=== PATIENT | female | born 1995 | race Caucasian/White ===

== ENCOUNTER 2022-11-24 12:50 | Outpatient (CLI) | payer OTHER, SELFPAY ==
--- NOTE | 2022-11-24 13:00 | CRLHL7_ITS ---
For Patients: As a result of the Cures Act, medical imaging exams and procedure reports are released immediately into your electronic medical record. You may view this report before your referring provider. If you have questions, please contact your health care provider. INDICATION: First trimester scan, establish dates. COMPARISON: None. TECHNIQUE: Real-time javier-scale imaging of the pelvis was performed. FINDINGS: Sonographic imaging demonstrates a single living intrauterine gestation. The embryo demonstrates a regular cardiac rate measuring 176 beats per minute. The embryo`s crown-rump length measurement of 2.5 cm corresponds to a gestational age of 9 weeks 1 day with a sonographic due date of June 28, 2023. There is a normal-appearing yolk sac measuring up to 3 mm. There are no gross abnormalities noted within the embryo at this early state of development. The placenta has not yet developed. The gestational sac has a normal appearance and there is no evidence of a perigestational hemorrhage. The amount of fluid within the sac appears appropriate for gestational age. The cervix is closed. The myometrium appears normal. The ovaries are of normal size. The right ovary measures 4.2 x 2.2 x 2.7 cm and contains a small corpus luteum cyst of . The left ovary measures 3.3 x 1.2 x 3.1 cm. There are no suspicious fluid collections noted in the cul-de-sac. IMPRESSION: Normal first trimester OB ultrasound exam. Gestational age calculated at 9 weeks 1 day with a sonographic due date of June 28, 2023. Dictated by Magdy Downing MD @ 11/24/2022 3:47:55 PM (Electronically Signed)
== END 2022-11-24 12:51 | disposition home or self-care (01) ==
LOC: US 12:51
PROVIDERS: Visit Provider Registered Nurse
DX: Z34.91 Encounter for supervision of normal pregnancy, unspecified, first trimester (principal); Z3A.09 9 weeks gestation of pregnancy
CPT/HCPCS: 76801; 76817; 76857

== ENCOUNTER 2022-11-24 13:09 | Outpatient (CLI) | payer OTHER, SELFPAY ==
[2022-11-24 18:00] LABS: Chlamydia DNA Amplified* NOT DETECTED (No Detected); GC DNA Amplified* NOT DETECTED (No Detected)
== END 2022-11-24 13:10 | disposition home or self-care (01) ==
PROVIDERS: Visit Provider Advanced Practice Midwife
DX: Z34.91 Encounter for supervision of normal pregnancy, unspecified, first trimester (principal); Z3A.09 9 weeks gestation of pregnancy
CPT/HCPCS: 86592; 86593; 86703; 86762; 86780; 86787; 86803; 86850; 86900; 86901; 87086; 87340; 87491; 87591

== ENCOUNTER 2023-04-06 08:48 | Outpatient (CLI) | payer OTHER, SELFPAY ==
--- OUTSIDE RECORDS SUMMARY | 2023-04-09 06:30 | XMS_ITS | Patient Health Record ---
Author Name Unknown Organization [facility] Address [address] [place], [place] [id number] Care Team Providers Care Drapery And Upholstery Estimator Name Role Phone None, No PCP Primary Care Provider Jonny Hernandez Unavailable [phone] Nhi Marquez Unavailable [phone] ALLERGIES No Known Allergies REASON FOR REFERRAL No Information MEDICATIONS Medication SIG (Take, Route, Fr equency, Duration) Notes Start Date End Date Status PNV Not-Taking SOCIAL HISTORY Tobacco Use: Social History Observation Description Date Details (start date - stop date) Former Smoker NA - NA Sex Assigned At : Social History Observation Description Sex Assigned At Unknown Tobacco Use/Smoking Question Answer Notes Are you a former smoker PROBLEMS Problem Type ICD Code Onset Dates Problem Status W/U Status Risk SNOMED Code Notes Problem Missed menses (N92.6) Active confirmed Missed period (34338132) VITAL SIGNS Blood pressure diastolic 80 mm Hg 05/18/2022 Height 69.5 in 05/18/2022 Blood pressure systolic 122 mm Hg 05/18/2022 Weight 283.0 lbs 05/18/2022 BMI 41.19 kg/m2 05/18/2022 Encounters Encounter Location Date Provider Diagnosis [facility] [address] [place] [address] 05/18/2022 [facility] Encounter for IUD removal Z30.432 ASSESSMENTS Encounter Date Diagnosis Assessment Notes Treatment Notes Treatment Clinical Notes 05/18/2022 Encounter for IUD removal (ICD-10 - Z30.432) Discussion with patient. Patient education done that fertility returns immediately upon removal of IUD. Encouraged patient to start on PNV. Will call the clinic with positive test. PLAN OF TREATMENT No Information Insurance Providers Payer Name Payer Address Payer Phone Subscriber Number Group Number Insured Name Patient Relationship to Insured Coverage Start Date Coverage End Date [facility] [address] [place] [id number] Beatriz Casillas Self - patient is the insured MEDICAL (GENERAL) HISTORY Medical History History ICD Code bladder infections migraines depression\anxiety Surgical History Surgery Date(Month/Year) T&A 2001
== END 2023-04-06 08:49 | disposition home or self-care (01) ==
LOC: NFLDREF 04-09 06:28
PROVIDERS: Visit Provider Obstetrics & Gynecology
DX: Z34.93 Encounter for supervision of normal pregnancy, unspecified, third trimester (principal); Z3A.28 28 weeks gestation of pregnancy
CPT/HCPCS: 86592

== ENCOUNTER 2023-05-04 09:13 | Outpatient (CLI) | payer OTHER, SELFPAY ==
--- NOTE | 2023-05-04 09:15 | CRLHL7_ITS ---
For Patients: As a result of the Century Cures Act, medical imaging exams and procedure reports are released immediately into your electronic medical record. You may view this report before your referring provider. If you have questions, please contact your health care provider. INDICATION: Third trimester scan, evaluate growth. MACROSOMIA COMPARISON: 11/24/2022 TECHNIQUE: Real time javier scale imaging of the fetus was performed. FINDINGS: Sonographic imaging demonstrates a single living intrauterine gestation. Fetus demonstrates a regular cardiac rate of 126 beats per minute. Fetus has a vertex position. The placenta lies anteriorly. Amniotic fluid volume appears normal and there is a single deepest vertical pocket: 6.2 cm. The estimated weight is 2444gm which lies at the greater than 97th %. BPD, HC, AC greater than 97th percentile. FL 47th percentile. The HC/AC ratio measures 1.03 range (0.93-1.11). IMPRESSION: Sonographic gestational age 34 weeks 5 days and sonographic due date 06/10/2023. Sonographic age 19 days ahead of the clinical age. Estimated weight greater than 97th percentile. BPD/HC/AC greater than 97th percentile. Dictated by Bharat Tejada MD @ 05/04/2023 10:18:28 AM (Electronically Signed)
--- OUTSIDE RECORDS SUMMARY | 2023-05-04 09:15 | XMS_ITS | Patient Health Record ---
Author Name Unknown Organization [facility] Address [address] [place], [place] [id number] Care Team Providers Care Senior Paralegal Name Role Phone None, No PCP Primary Care Provider Jonny Hernandez Unavailable [phone] Nhi Marquez Unavailable [phone] ALLERGIES No Known Allergies REASON FOR REFERRAL [...] Missed menses (N92.6) Active confirmed Missed period (51502497) VITAL SIGNS Blood pressure diastolic 80 mm Hg 05/18/2022 Height 69.5 in 05/18/2022 Blood pressure systolic 122 mm Hg 05/18/2022 Weight 283.0 lbs 05/18/2022 BMI 41.19 kg/m2 05/18/2022 Encounters Encounter Location Date Provider Diagnosis [facility] [address] [place] [address] 05/18/2022 [facility] Encounter for IUD removal Z30.432 ASSESSMENTS Encounter [...] Insured Coverage Start Date Coverage End Date [facility] [address] [place], [place] [id number] Beatriz Casillas Self - patient is the insured MEDICAL (GENERAL) HISTORY Medical History History ICD Code bladder infections migraines depression\anxiety Surgical History Surgery Date(Month/Year) T&A 2001
== END 2023-05-04 09:14 | disposition home or self-care (01) ==
LOC: US 09:13
PROVIDERS: Visit Provider Obstetrics & Gynecology
DX: O36.63X0 Maternal care for excessive fetal growth, third trimester, not applicable or unspecified (principal); Z3A.34 34 weeks gestation of pregnancy
CPT/HCPCS: 76816

== ENCOUNTER 2023-05-17 08:37 | Outpatient (CLI) | payer OTHER, SELFPAY ==
--- NOTE | 2023-05-17 08:45 | CRLHL7_ITS ---
For Patients: As a result of the Century Cures Act, medical imaging exams and procedure reports are released immediately into your electronic medical record. You may view this report before your referring provider. If you have questions, please contact your health care provider. INDICATION: hx. macrosomia COMPARISON: 05/04/2023 TECHNIQUE: Real time javier scale imaging of the fetus was performed. Without non-stress testing. FINDINGS: Sonographic imaging demonstrates a single living intrauterine gestation. Fetus demonstrates a regular cardiac rate of 128 beats per minute. Fetus has a vertex position. The amniotic fluid volume appears normal and there is a single deepest pocket measurement of 6.0 cm. The fetus was active and demonstrated normal breathing movements. There was normal flexion and extension of the trunk and extremities. IMPRESSION: Normal biophysical profile score of 8 out of 8. Dictated by Bharat Tejada MD @ 05/17/2023 2:00:04 PM (Electronically Signed)
== END 2023-05-17 08:38 | disposition home or self-care (01) ==
LOC: US 08:37
PROVIDERS: Visit Provider Obstetrics & Gynecology
DX: O36.60X0 Maternal care for excessive fetal growth, unspecified trimester, not applicable or unspecified (principal)
CPT/HCPCS: 76819

== ENCOUNTER 2023-05-26 09:15 | Outpatient (CLI) | payer OTHER, SELFPAY ==
--- NOTE | 2023-05-26 09:15 | CRLHL7_ITS ---
For Patients: As a result of the Century Cures Act, medical imaging exams and procedure reports are released immediately into your electronic medical record. You may view this report before your referring provider. If you have questions, please contact your health care provider. OB US/BIOPHYSICAL PROFILE, 05/26/2023 CLINICAL HISTORY: History of macrosomia. KAYLA by LMP: 06/29/2023. GA: 35 w, 1 d. COMPARISON: 05/17/2023. positioning: Vertex. Amniotic Fluid: 9.0 cm SDP (greater than or equal than 2-less than 8 cm). LUCAS: 16.2 cm. Cervix: Not visualized. TECHNIQUE: Transabdominal. Placenta: Anterior. DOPPLER: Heart Rate: 136 bpm. Biophysical profile: Total score: 8. Gross body movements: 2. tone: 2. Respiratory activity: 2. Amniotic fluid: 2. (SDP N: Increase 2 x 1 cm) IMPRESSION: Biophysical profile 03/09. aKrla Faulkner M.D. Diagnostic/Breast Radiologist [email or web address] Transcribed: 11:10 a.mDemetria JR/Dictated by: Karla Faulkner MD @ 05/28/2023 7:45:00 AM (Electronically Signed)
--- OUTSIDE RECORDS SUMMARY | 2023-05-26 09:16 | XMS_ITS | Patient Health Record ---
Author Name Unknown Organization [facility] Address [address] [place], [place] [address] Care Team Providers Care Larriman Name Role Phone None, No PCP Primary Care Provider Jonny Hernandez [phone] ALLERGIES No Known Allergies REASON FOR REFERRAL [...] Missed menses (N92.6) Active confirmed Missed period (31330064) PLAN OF TREATMENT No Information Insurance Providers Payer Name Payer Address Payer Phone Subscriber Number Group Number Insured Name Patient Relationship to Insured Coverage Start Date Coverage End Date [facility] [address] [facility] OM[facility] [id number] Beatriz Casillas Self - patient is the insured MEDICAL (GENERAL) HISTORY Medical History History ICD Code bladder infections migraines depression\anxiety Surgical History Surgery Date(Month/Year) T&A 2001
== END 2023-05-26 09:16 | disposition home or self-care (01) ==
LOC: US 09:15
PROVIDERS: Visit Provider Obstetrics & Gynecology
DX: O36.60X0 Maternal care for excessive fetal growth, unspecified trimester, not applicable or unspecified (principal)
CPT/HCPCS: 76819

== ENCOUNTER 2023-06-01 09:13 | Outpatient (CLI) | payer OTHER, SELFPAY ==
--- NOTE | 2023-06-01 09:15 | CRLHL7_ITS ---
For Patients: As a result of the Century Cures Act, medical imaging exams and procedure reports are released immediately into your electronic medical record. You may view this report before your referring provider. If you have questions, please contact your health care provider. INDICATION: HX MACROSOMIA TECHNIQUE: Real time javier scale imaging of the fetus was performed. COMPARISON: 05/26/2023 FINDINGS: Sonographic imaging demonstrates a single living intrauterine gestation. Fetus demonstrates a regular cardiac rate of 128 beats per minute. Fetus has a vertex position. The placenta lies anteriorly. Amniotic fluid volume appears upper limits of normal and there is a single deepest pocket of 8.8 cm. LUCAS 24.6 cm. The estimated weight is 3602gm which lies at the greater than 97th %. On the prior OB ultrasound dated 05/04/2023 the estimated weight was at the greater than 97th percentile. BPD, HC, AC greater than 97th percentile. FL 49th percentile. The fetus was active and demonstrated normal breathing movements. There was normal flexion and extension of the trunk and extremities. IMPRESSION: Normal biophysical profile score 8/8. Sonographic gestational age 39 weeks 0 days and sonographic due date 06/08/2023. Sonographic age is 3 weeks ahead of the clinical age. Estimated weight greater than 97th percentile. BPD/HC/AC greater than 97th percentile. Upper limits of normal LUCAS measuring 24.6 cm. Dictated by Bharat Tejada MD @ 06/01/2023 11:05:46 AM (Electronically Signed)
--- OUTSIDE RECORDS SUMMARY | 2023-06-01 09:15 | XMS_ITS | Patient Health Record ---
Author Name Unknown Organization [facility] Address [address] [place], [place] [id number] Care Team Providers Care Hob Machine Operator Name Role Phone None, No PCP Primary Care Provider Jonny Hernandez [phone] ALLERGIES No Known Allergies REASON FOR REFERRAL [...] Missed menses (N92.6) Active confirmed Missed period ([id number]) PLAN OF TREATMENT No Information Insurance Providers Payer Name Payer Address Payer Phone Subscriber Number Group Number Insured Name Patient Relationship to Insured Coverage Start Date Coverage End Date [facility] [address] [facility] [place] [id number] Beatriz Casillas Self - patient is the insured MEDICAL (GENERAL) HISTORY Medical History History ICD Code bladder infections migraines depression\anxiety Surgical History Surgery Date(Month/Year) T&A 2001
== END 2023-06-01 09:14 | disposition home or self-care (01) ==
LOC: US 09:13
PROVIDERS: Visit Provider Obstetrics & Gynecology
DX: O36.63X0 Maternal care for excessive fetal growth, third trimester, not applicable or unspecified (principal); Z3A.39 39 weeks gestation of pregnancy
CPT/HCPCS: 76816; 76819; 87081; 87653

== ENCOUNTER 2023-06-10 08:42 | Outpatient (CLI) | payer OTHER, SELFPAY ==
--- OUTSIDE RECORDS SUMMARY | 2023-06-10 08:43 | XMS_ITS | Patient Health Record ---
Author Name Unknown Organization [facility] Address [address] [place], [place] [phone] Care Team Providers Care Seam Checker Name Role Phone None, No PCP Primary Care Provider Jonny Hernandez [phone] ALLERGIES No Known Allergies REASON FOR REFERRAL [...] Missed menses (N92.6) Active confirmed Missed period ([id number]) PLAN OF TREATMENT No Information Insurance Providers Payer Name Payer Address Payer Phone Subscriber Number Group Number Insured Name Patient Relationship to Insured Coverage Start Date Coverage End Date [facility] [address] [facility] [place] [id number] Beatriz Casillas Self - patient is the insured MEDICAL (GENERAL) HISTORY Medical History History ICD Code bladder infections migraines depression\anxiety Surgical History Surgery Date(Month/Year) T&A 2001
--- NOTE | 2023-06-10 08:45 | CRLHL7_ITS ---
For Patients: As a result of the Century Cures Act, medical imaging exams and procedure reports are released immediately into your electronic medical record. You may view this report before your referring provider. If you have questions, please contact your health care provider. INDICATION: Macrosomia COMPARISON: 06/01/2023 TECHNIQUE: Real time javier scale imaging of the fetus was performed. Without non-stress testing. FINDINGS: Sonographic imaging demonstrates a single living intrauterine gestation. Fetus demonstrates a regular cardiac rate of 159 beats per minute. Fetus has a vertex position. The amniotic fluid volume appears normal and there is a single deepest pocket measurement of 7.6 cm. The fetus was active and demonstrated normal breathing movements. There was normal flexion and extension of the trunk and extremities. IMPRESSION: Normal biophysical profile score of 8 out of 8. Dictated by Bharat Tejada MD @ 06/10/2023 10:13:31 AM (Electronically Signed)
== END 2023-06-10 08:43 | disposition home or self-care (01) ==
LOC: US 08:42
PROVIDERS: Visit Provider Obstetrics & Gynecology
DX: O36.60X0 Maternal care for excessive fetal growth, unspecified trimester, not applicable or unspecified (principal)
CPT/HCPCS: 76819

== ENCOUNTER 2023-06-15 09:45 | Outpatient (CLI) | payer OTHER, SELFPAY ==
--- NOTE | 2023-06-15 09:45 | CRLHL7_ITS ---
For Patients: As a result of the Century Cures Act, medical imaging exams and procedure reports are released immediately into your electronic medical record. You may view this report before your referring provider. If you have questions, please contact your health care provider. INDICATION: MACROSOMIA COMPARISON: 06/10/2023 TECHNIQUE: Real time javier scale imaging of the fetus was performed. Without non-stress testing. FINDINGS: Sonographic imaging demonstrates a single living intrauterine gestation. Fetus demonstrates a regular cardiac rate of 138 beats per minute. Fetus has a vertex position. The amniotic fluid volume appears normal and there is a single deepest pocket measurement of 7.1 cm. The fetus was active and demonstrated normal breathing movements. There was normal flexion and extension of the trunk and extremities. IMPRESSION: Normal biophysical profile score of 8 out of 8. Dictated by Bharat Tejada MD @ 06/15/2023 10:41:39 AM (Electronically Signed)
--- OUTSIDE RECORDS SUMMARY | 2023-06-15 09:48 | XMS_ITS | Patient Health Record ---
Author Name Unknown Organization [facility] Address [address] [place], [place] [address] Care Team Providers Care It Solutions Sales Consultant Name Role Phone None, No PCP Primary Care Provider Jonny Hernandez [phone] ALLERGIES No Known Allergies REASON FOR REFERRAL [...] Missed menses (N92.6) Active confirmed Missed period ([id number]) PLAN OF TREATMENT No Information Insurance Providers Payer Name Payer Address Payer Phone Subscriber Number Group Number Insured Name Patient Relationship to Insured Coverage Start Date [facility]age End Date [facility] [address] [facility] [place] [id number] Beatriz Casillas Self - patient is the insured MEDICAL (GENERAL) HISTORY Medical History History ICD Code bladder infections migraines depression\anxiety Surgical History Surgery Date(Month/Year) T&A 2001
== END 2023-06-15 09:46 | disposition home or self-care (01) ==
PROVIDERS: Visit Provider Obstetrics & Gynecology
DX: O36.60X0 Maternal care for excessive fetal growth, unspecified trimester, not applicable or unspecified (principal)
CPT/HCPCS: 76819

== ENCOUNTER 2023-06-21 17:02 | Inpatient (IN) | payer OTHER, SELFPAY ==
--- OUTSIDE RECORDS SUMMARY | 2023-06-21 17:07 | XMS_ITS | Patient Health Record ---
Author Name Unknown Organization [facility] Address [address] [place], [place] [address] Care Team Providers Care Manager It Training Name Role Phone None, No PCP Primary Care Provider Jonny Hernandez [phone] ALLERGIES No Known Allergies REASON FOR REFERRAL [...] Missed menses (N92.6) Active confirmed Missed period ([id number]) PLAN OF TREATMENT No Information Insurance Providers Payer Name Payer Address Payer Phone Subscriber Number Group Number Insured Name Patient Relationship to Insured Coverage Start Date Coverage End Date [facility] [address] [facility] [place] [id number] Beatriz Casillas Self - patient is the insured MEDICAL (GENERAL) HISTORY Medical History History ICD Code bladder infections migraines depression\anxiety Surgical History Surgery Date(Month/Year) T&A 2001
[2023-06-21 17:30] VITALS: PULSE 79; O2SAT 97; BMI 41.4
[2023-06-21 17:33] VITALS: BP 118/68; PULSE 77; RESP 18; TEMP 36.6
[2023-06-21 17:35] VITALS: PULSE 83; O2SAT 97
[2023-06-21 18:18] LABS: Basophils Absolute Auto 0.01 K/uL (0.00-0.30); Basophils Percent Auto 0.1 % (0.0-3.0); Eosinophils Absolute Auto 0.08 K/uL (0.00-0.50); Eosinophils Percent Auto 0.9 % (0.0-7.0); Hematocrit 34.2 % (33.0-51.0); Hemoglobin* 11.5 gm/dL (12.0-16.0); Immature Granulocytes Abs Auto 0.04 K/uL (0.00-0.30); Immature Granulocytes Pct Auto 0.5 %; Lymphocytes Percent Auto 19.4 % (20-44); Mean Corpuscular HGB Conc 34 gm/dL (32-36); Mean Corpuscular Hemoglobin 30 pg (26-34); Mean Corpuscular Volume 89 fL (80-100); Monocytes Percent Auto 6.4 % (0.0-11.0); Neutrophils Percent Auto 72.7 % (42.0-72.0); Platelet Count* 230 K/uL (140-440); RDW Coefficient of Variation % 12.9 % (11.5-15.5); Red Blood Count 3.85 m/uL (4.00-5.20)
[2023-06-21 18:19] LABS: Slide Review Reflex No
[2023-06-21 20:03] VITALS: BP 126/70; PULSE 80
--- NOTE | 2023-06-21 20:09 | P.OBHP_ITS ---
OB - H&P: HPI Labor/Induction History of Present Illness Time Seen by Provider: 18:15 Date Seen: 06/21/23 Chief Complaint: Ms. Casillas is a 27yo at 38w6d GA admitted for IOL due to suspected macrosomia. course is complicated by suspected macrosomia (EFW 3602g at >97%ile on 06/01), transient mild polyhydramnios (resolved at last BPP), history of PPH secondary to retained placenta and obesity. Patient is feeling well today, no acute concerns. She has had regular cramping over the last week, notes increased frequency over the last few days with associated tightening. No vaginal bleeding and leaking of fluids. Endorses active movement. Chief complaint: Maternity Specific Issues/Plans Spouse: Shine. Daughter: Karen. Baby: Boy Amrit/Daniel LEZAMA Planning 39 week IOL for suspected macrosomia/polyhydramnios - consent form signed on 05/26/23, tentative date 06/21 (cervical ripening) and 06/22 (IOL) H&P completed by NDP on 06/10/2023 1. BMI 41. -anesthesia referral: -Level II u/s: anterior placenta, no previa, 3v cord. cardiac anatomy not adequately seen; anatomy otherwise normal in appearance. Pt will return to [facility] in 3-4 weeks to complete anatomic survey. D/t BMI: Recommend assess growth at 28 and 34 weeks and begin weekly testing at 34 weeks. 02/16/23: US: growth and EFW nl. Cardiac anatomy not adequately seen. anatomy normal. RVOT seen well / color flow and appears normal. Will reassess anatomy at [facility] in 4 weeks. 03/09/23 US: no anomalies. accelerated growth: Rec. serial growth US q4-6 weeks and weekly BPPs at 34 weeks. -20 wk GCT:100, normal. Repeat at 28 weeks -BPP or NST starting 32 wks: Scheduled (due to polyhydramnios) -Growth u/s between 32-36 wks: EFW 2444 g, or 5 lb 6 oz (>97%), BPD >97%, HC >97%, AC >97%, FL 47%, SDP 6.2 cm, vertex on 05/03/23. 2. Suspected macrosomia: -06/01/23 US: growth 3602g at >97%ile consistent with macrosomia, SDP 8.8cm with LUCAS 24.6cm consistent with mild polyhydramnios. 03/09 BPP. 3. Mild Polyhydramnios, SDP 8.8cm on 06/01 4. Hx of depression & anxiety -Briefly treated with therapist and lexapro in college -stable at NOB 5. Hx of macrosomic baby, 9 lb 4 oz at 40 weeks, denies any complications w/ delivery 6. hx of PP hemorrhage requiring D & C - likely r/t retained placenta 7. 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 Confirmation testing negative for syphilis. Pap due PP Covid vaccination: received, 1 booster Flu vaccination: patient reports this was completed RSV: 06/01/23 TDAP: 04/20/23 History of Present Dating criteria: based on LMP (LMP consistent with 9 week US) care: good care Ultrasounds: normal mid trimester US complications comment: Suspected macrosomia, mild polyhydramnios (resolved on last BPP) Meds Home Medications and Allergies Home Medications Medication Instructions Recorded Confirmed Type prenat.vits,melvin,nmu-aehw-qyybg 1 tab PO QDAY 11/24/22 06/21/23 History Allergies Allergy/AdvReac Type Severity Reaction Status Date / Time No Known Drug Allergies Allergy Verified 06/21/23 17:10 OB - H&P: Exam Physical Exam: Vital signs: Temp Pulse Resp BP Pulse Ox 98 F 80 18 126/70 97 06/21/23 17:33 06/21/23 20:03 06/21/23 17:33 06/21/23 20:03 06/21/23 17:35 Narrative: General: Alert and oriented, in no acute distress Heart: Regular rate and rhythm. Without rubs, murmurs or gallops. Lungs: Clear to posterior auscultation throughout. No wheezes, rales or crackles. Abdomen: Gravid. Nontender, no rebound or guarding. EFW 4100g by Rafita's. Heart Tones: Category 1. Baseline 120bpm, moderate variability, accelerations present, no decelerations. Presentation: Cephalic by digital exam. SVE: 1/50/-3, posterior and moderate consistency. Extremities: No pedal edema. OB - Results Labs Labs: Short CBC 06/21/23 Range/Units 18:13 WBC 8.80 (4.50-11.00) K/uL Hgb 11.5 L (12.0-16.0) gm/dL Hct 34.2 (33.0-51.0) % Plt Count 230 (140-440) K/uL OB - Problem Based A/P Additional Plan (1) : Status: Acute (2) macrosomia affecting management of mother, antepartum: Status: Acute (3) Obesity complicating : Status: Acute (4) Polyhydramnios: Status: Acute (5) History of hemorrhage: Status: Acute Plan Ms. Casillas is a 27yo at 38w6d GA admitted for IOL due to suspected macrosomia. course is complicated by suspected macrosomia (EFW 3602g at >97%ile on 06/01), transient mild polyhydramnios (resolved at last BPP), history of PPH secondary to retained placenta and obesity. Admit to labor and delivery for IOL. Given regular, mild contractions and cervical exam, plan to start IOL at cook catheter. Of note on her last BPP her maximum vertal pocket was within normal limits, but she did previously had mild polyhydramnios. Discussed risks/benefits and alternatives prior to placement, where verbal consent was obtained. Cook insertion was unremarkable. - s/p cook catheter, plan to initiate low dose pitocin augmentation at 0000 pending FHR and toco data - History of PPH secondary to retained placenta, active T/S on file - EFW by my Rafita's exam was 4100g, last growth US on 06/01 with EFW of 3602g at >97%ile. She is s/p counseling regarding risks of macrosomia were reviewed at visits. No questions today. - BT AB+ - GBS negative
[2023-06-21 23:59] VITALS: BP 99/58; PULSE 90
[2023-06-22] VITALS (85 sets, daily range): BP systolic 96–135; BP diastolic 51–84; PULSE 66–146; RESP 16–20; TEMP 36.4–36.8
[2023-06-22] MEDS: LACTATED RINGERS 1000 ML 1,000 ML 125 ML IV ×2 (00:01→07:39)
[2023-06-22] MEDS: OXYTOCIN 30 unit/500 ML in NS 30 UNIT/500 ML BAG IVPB (00:02)
--- NOTE | 2023-06-22 07:40 | P.OBPN_ITS ---
Subjective Time Seen by Provider: 07:40 Date Seen: 06/22/23 Narrative: Patient is comfortable this morning. Rates contractions as mild to moderate, has to stop talking and breathe through some of them. Ordering breakfast. Plans epidural when contractions intensify. Objective Exam: Alert, cooperative, no acute distress. Vital Signs: Last Vital Signs Temp 98 F 06/22/23 00:06 Pulse 90 06/22/23 07:26 Resp 16 06/22/23 00:06 BP 108/61 06/22/23 07:26 Pulse Ox 97 06/21/23 17:35 Pelvic Exam Dilation (cm): 5.5 Effacement (%): 50 Station: ballotable Comments: per nursing at ~5:30 am Contractions Monitor mode: External Contraction Frequency: 2-4 minutes Contraction pattern: Irregular Pitocin Rate (mU/min): 8 Assessment Assessment: induction ongoing Status: Category l Heart Rate Baseline: 135 White Mixing Operator Variability: Moderate (6-25) Monitor Accelerations: Present Monitor Decelerations: None Plan Plan: Continue present management.
--- NOTE | 2023-06-22 11:49 | PM.OBPNL ---
Subjective Time Seen by Provider: 11:49 Date Seen: 06/22/23 Narrative: Patient still working through contractions. Objective Exam: Alert, cooperative, comfortable between contractions Vital Signs: Last Vital Signs Temp 97.7 F 06/22/23 09:55 Pulse 66 06/22/23 10:57 Resp 18 06/22/23 10:57 BP 114/67 06/22/23 10:57 Pulse Ox 97 06/21/23 17:35 Pelvic Exam Dilation (cm): 7 Effacement (%): 80 Station: -1 Contractions Monitor mode: External Contraction pattern: Regular Contraction intensity: Moderate Pitocin Rate (mU/min): 12 Assessment Assessment: induction ongoing Station: -1 Status: Category l Heart Rate Baseline: 140 Monitor Accelerations: Present Monitor Decelerations: None Plan Plan: Continue current management. Epidural prn. Will wait until epidural on board before considering amniotomy.
[2023-06-22] MEDS: LIDOCAINE 2% (PF) 5 ML VIAL EPIDURAL (12:29)
[2023-06-22] MEDS: LACTATED RINGERS 1000 ML 1,000 ML 1125 ML IV (12:35)
[2023-06-22] MEDS: ROPIVACAINE 0.2% 100 ml 100 ML 12 MG EPIDURAL (12:48)
--- NOTE | 2023-06-22 12:57 | PM.ANBPRC ---
[facility] Medical History (Updated 06/21/23 @ 20:14 by Beatriz Vaughn MD) Hx of hemorrhage, currently ?O09.299 - Supervision of with other poor reproductive or obstetric history, unspecified trimester (ICD-10) History of delivery of macrosomal ?Z87.59 - Personal history of other complications of , childbirth and the puerperium (ICD-10) Surgical History (Updated 11/24/22 @ 14:37 by Lisbeth Peck CNM) History of dilatation and curettage ?Z98.890 - Other specified postprocedural states (ICD-10) [place] teeth extracted ?K08.409 - Partial loss of teeth, unspecified cause, unspecified class (ICD-10) Hx of tonsillectomy ?Z90.89 - Acquired absence of other organs (ICD-10) Family History (Updated 11/24/22 @ 14:40 by Lisbeth Peck CNM) Maternal Grandmother Breast cancer Aunt Breast cancer Father Colon polyp Social History What is your current living situation?: I presently have a place to live Problems where you live: no known problems In the past 12 months, utilities in danger of being shut off: no In past 12 months, lack of transportation kept you from medical appts, meetings, work, or getting things needed for daily living: no In the past 12 mos, have been you worried that your food would run out before you had money to buy more?: never true In the past 12 mos, the food you bought just didn't last and you didn't have money to buy more?: never true Smoking Status: Never smoker How often does anyone, including family, friends and others, physically hurt you: never How often does anyone, including family, friends and others, insult or talk down to you: never How often does anyone, including family, friends and others, threaten you with harm: never How often does anyone, including family, friends and others, scream or curse at you: never Little interest or pleasure in doing things: not at all Feeling down, depressed, or hopeless: several days Meds Home Medications and Allergies Home Medications Medication Instructions Recorded Confirmed Type prenat.vits,melvin,plg-phpp-sdhfv 1 tab PO QDAY 11/24/22 06/21/23 History Allergies Allergy/AdvReac Type Severity Reaction Status Date / Time No Known Drug Allergies Allergy Verified 06/21/23 17:10 Results Labs Labs: Laboratory Results - last 24 hr 06/21/23 18:13 WBC 8.80 RBC 3.85 L Hgb 11.5 L Hct 34.2 MCV 89 MCH 30 MCHC 34 RDW Coeff of Matthew 12.9 Plt Count 230 Neut % (Auto) 72.7 H Lymph % (Auto) 19.4 L [place] % (Auto) 6.4 Eos % (Auto) 0.9 Baso % (Auto) 0.1 Neut # (Auto) 6.40 Lymph # (Auto) 1.70 [place] # (Auto) 0.60 Eos # (Auto) 0.08 Baso # (Auto) 0.01 Abs Immat Gran (auto) 0.04 Imm/Tot Granulo (auto) 0.5 Blood Type AB Positive Antibody Screen NEGATIVE Vital Signs Vital Signs: Last Vital Signs Temp 97.6 F 06/22/23 11:50 Pulse 75 06/22/23 12:55 Resp 20 06/22/23 11:50 BP 114/65 06/22/23 12:55 Pulse Ox 97 06/21/23 17:35 Weight: 130.952 kg Height: 177.8 cm Anesthesia Procedures Epidural Insertion Patient Location: OB Start Time: 12:15 Stop Time: 12:45 Start Date: 06/22/23 Stop Date: 06/22/23 Reason for Block: procedure for pain Patient Position: sitting Performed By: Jonny Rae Preanesthetic Checklist: IV checked, risks and benefits discussed, monitors and equipment checked, pre-op evaluation, timeout performed and anesthesia consent Prep: chlorhexidine gluconate Monitoring: blood pressure monitoring, continuous pulse oximetry and heart rate Approach: midline Vertebral Space: lumbar (1-5) Epidural Technique: KORIN saline Needle Type: Tuohy needle Injection Technique: continuous catheter Needle gauge: 17 Needle Length (cm): 10 cm Needle Insertion Depth (cm): 8 Catheter Gauge: 19 Catheter Type: multi-orifice Catheter at skin depth (cm): 14 Test Dose Result: negative and lidocaine 1.5% with epinephrine 1 to 200,000
[2023-06-22] MEDS: PHENYLEPHRINE 100 MCG/ML SYRINGE IVP ×5 (14:02→15:47)
--- NOTE | 2023-06-22 14:09 | PM.ANBPRC ---
[facility] Medical History (Updated 06/21/23 @ 20:14 by Beatriz Vaughn MD) Hx of hemorrhage, currently ?O09.299 - Supervision of with other poor reproductive or obstetric history, unspecified trimester (ICD-10) History of delivery of macrosomal ?Z87.59 - Personal history of other complications of , childbirth and the puerperium (ICD-10) Surgical History (Updated 11/24/22 @ 14:37 by Lisbeth Peck CNM) History of dilatation and curettage ?Z98.890 - Other specified postprocedural states (ICD-10) [place] teeth extracted ?K08.409 - Partial loss of teeth, unspecified cause, unspecified class (ICD-10) Hx of tonsillectomy ?Z90.89 - Acquired absence of other organs (ICD-10) Family History (Updated 11/24/22 @ 14:40 by Lisbeth Peck CNM) Maternal Grandmother Breast cancer Aunt Breast cancer Father Colon polyp Social History What is your current living situation?: I presently have a place to live Problems where you live: no known problems In the past 12 months, utilities in danger of being shut off: no In past 12 months, lack of transportation kept you from medical appts, meetings, work, or getting things needed for daily living: no In the past 12 mos, have been you worried that your food would run out before you had money to buy more?: never true In the past 12 mos, the food you bought just didn't last and you didn't have money to buy more?: never true Smoking Status: Never smoker How often does anyone, including family, friends and others, physically hurt you: never How often does anyone, including family, friends and others, insult or talk down to you: never How often does anyone, including family, friends and others, threaten you with harm: never How often does anyone, including family, friends and others, scream or curse at you: never Little interest or pleasure in doing things: not at all Feeling down, depressed, or hopeless: several days Meds Home Medications and Allergies Home Medications Medication Instructions Recorded Confirmed Type prenat.vits,melvin,cof-lpor-gynwk 1 tab PO QDAY 11/24/22 06/21/23 History Allergies Allergy/AdvReac Type Severity Reaction Status Date / Time No Known Drug Allergies Allergy Verified 06/21/23 17:10 Results Labs Labs: Laboratory Results - last 24 hr 06/21/23 18:13 WBC 8.80 RBC 3.85 L Hgb 11.5 L Hct 34.2 MCV 89 MCH 30 MCHC 34 RDW Coeff of Matthew 12.9 Plt Count 230 Neut % (Auto) 72.7 H Lymph % (Auto) 19.4 L [place] % (Auto) 6.4 Eos % (Auto) 0.9 Baso % (Auto) 0.1 Neut # (Auto) 6.40 Lymph # (Auto) 1.70 [place] # (Auto) 0.60 Eos # (Auto) 0.08 Baso # (Auto) 0.01 Abs Immat Gran (auto) 0.04 Imm/Tot Granulo (auto) 0.5 Blood Type AB Positive Antibody Screen NEGATIVE Vital Signs Vital Signs: Last Vital Signs Temp 97.6 F 06/22/23 11:50 Pulse 90 06/22/23 14:08 Resp 20 06/22/23 11:50 BP 110/77 06/22/23 14:08 Pulse Ox 97 06/21/23 17:35 Weight: 130.952 kg Height: 177.8 cm Anesthesia Procedures Epidural Insertion Patient Location: OB Start Time: 13:30 Stop Time: 14:30 Start Date: 06/22/23 Stop Date: 06/22/23 Reason for Block: primary anesthetic Patient Position: sitting Performed By: Hadley Green Preanesthetic Checklist: IV checked, risks and benefits discussed, surgical consent, monitors and equipment checked, pre-op evaluation, timeout performed and anesthesia consent Prep: chlorhexidine gluconate Monitoring: blood pressure monitoring, cardiac rehabilitation specialist, continuous pulse oximetry and heart rate Approach: midline Vertebral Space: lumbar (1-5) Needle Type: Tuohy needle Injection Technique: continuous catheter Needle gauge: 17 Needle Length (cm): 10 cm Needle Insertion Depth (cm): 6 Catheter Gauge: 19 Catheter Type: multi-orifice Catheter at skin depth (cm): 12 Test Dose Result: negative and lidocaine 1.5% with epinephrine 1 to 200,000 Events: other
[2023-06-22] MEDS: fentaNYL 100 MCG/2 ML inj EPIDURAL (14:23)
--- NOTE | 2023-06-22 15:02 | PM.OBPNL ---
Subjective Time Seen by Provider: 14:50 Date Seen: 06/22/23 Narrative: Patient comfortable with epidural. It had to be administered twice, as the 1st epidural was not effective. A Andrade catheter was placed by the RN at 1410, and a repeat cervical exam at that time demonstrated a ballotable fetus with a bulging bag of devries. Objective Vital Signs: Last Vital Signs Temp 97.9 F 06/22/23 14:00 Pulse 86 06/22/23 14:48 Resp 20 06/22/23 11:50 BP 116/73 06/22/23 14:48 Pulse Ox 97 06/21/23 17:35 Pelvic Exam Dilation (cm): 8 Effacement (%): 90 Station: -1 Contractions Monitor mode: External Contraction pattern: Regular Contraction intensity: Moderate Pitocin Rate (mU/min): 13 Assessment Station: -1 Amniotic Membrane Status: AROM (Amniotomy performed at 1451, clear fluid noted) Status: Category l Heart Rate Baseline: 140 Monitor Accelerations: Present Monitor Decelerations: None Plan Plan: Continue current management. Anticipate vaginal delivery.
--- NOTE | 2023-06-22 17:27 | W.PM.OBVAGDE ---
OB Procedure Vag Delivery Mother Details Mother Details: The patient is a 27 year-old, 2, Para 1001, admitted on 06/21/23 at 38 6/7 weeks gestation for cervical ripening in preparation for induction of labor secondary to suspected marosomia. : 2 Para: 1 Weeks Gestation: 39 Admission Date: 06/21/23 Additional Details Amniotic Membrane Status: intact Amniotic Membrane Rupture Date: 06/22/23 Amniotic Membrane Rupture Time: 14:50 Amniotic Membrane Fluid Description: Clear Analgesia/Anesthesia Type: Epidural Waterbirth: No Pitcoin: Yes Intrapartal Events: Labor Induction Induction Method: Intracervical balloon catheter and per pitocin protocol Delivery augmentation: rupture of membranes Labor Onset: 12:10 Complete: 15:49 Pushin:10 (Patient had nausea/emesis while pushing in lateral recombant or lithotomy position. Pushed well on hands/knees.) Heart: heart tones during second stage were 140 baseline with variable decelerations to 90-100s. Delivery Details Delivery Date: 06/22/23 Delivery Time: 17:13 Route of delivery: Infant Gender: Male Infant Viability: Alive; Heart Rate Present Position at Delivery: OA (rotated from OP during hands/knees pushing) Delivery Details: Delivered over intact perineum via spontaneous vaginal delivery. There was a nuchal cord x1 which could not be reduced over the head, so it was pushed over the shoulders with delivery of the body. was placed on maternal abdomen.? Cord was clamped and cut after a 30-60 second delay. Nose and mouth were bulb suctioned.? Infant weight pending. Additional Details Shoulder Dystocia: No Placenta Delivery Time: 17:19 Placental Delivery Description: Spontaneous Procedure Done: Global Blood Loss: 70 Laceration: None Blood Loss Measurement Type: QBL [place] Used: No Cord Vessel Description: 3 Vessels Event Summary Status: Mother and infant were stable after delivery. Disposition: floor
[2023-06-23] VITALS: BP 99/66; PULSE 82; RESP 16; TEMP 36.7; O2SAT 94
[2023-06-23] MEDS: ACETAMINOPHEN 500 MG TABLET 1000 MG PO ×3 (02:54→17:15)
[2023-06-23 04:12] VITALS: BP 106/69; PULSE 70; RESP 16; TEMP 36.8; O2SAT 97
[2023-06-23 07:04] LABS: Hemoglobin* 10.6 gm/dL (12.0-16.0)
[2023-06-23] MEDS: IBUPROFEN 600 MG TABLET PO ×2 (08:14→17:15)
[2023-06-23] MEDS: DOCUSATE SODIUM 100 MG CAPSULE PO (08:14)
[2023-06-23 08:15] VITALS: BP 109/73; PULSE 77; RESP 18; TEMP 36.5; O2SAT 97
--- NOTE | 2023-06-23 11:31 | PM.OBPNVD1 ---
OB - PN:Subj Subjective Date Seen: 06/23/23 Patient comments OB post-: no complaints and pain well controlled [place] infant status: and doing well [place] feeding status: exclusively Narrative: Beatriz is a 27 y.o. who was admitted to [facility] for induction of labor .? She had an uncomplicated NVD.? ?? The patient feels well.? The pain is well controlled with current medications.? She has no new complaints.? She is breast feeding and reports things are going well.? the patient has done well.? Vitals have been stable.? She has remained afebrile.? Has a good appetite, is tolerating a general diet.? She is voiding without difficulty.? She is passing gas and has not had a bowel movement.? She is ambulating and denies any dizziness.? Has Small amount of rubra lochia.? OB - PN: Obj Exam Physical Exam: Vital signs: Temp Pulse Resp BP Pulse Ox O2 Del Method 97.7 F 77 18 109/73 97 Room Air 06/23/23 08:15 06/23/23 08:15 06/23/23 08:15 06/23/23 08:15 06/23/23 08:15 06/23/23 08:15 Narrative: GENERAL APPEARANCE:? normal affect, alert, no distress? MOOD:? appropriate? HEENT: normocephalic, neck supple, full ROM? CHEST:? Symmetrical chest wall movement.? Normal respiratory effort.? Clear to auscultation ? HEART:? regular rate and rhythm? ABDOMEN:? soft, non-tender. Uterine fundus is firm, 1 below Umbilicus, Midline and is appropriate for the stage of recovery.? Bowel sounds present.? PERINEUM:? mild edema of the perineum, no laceration. EXTREMITIES:? normal and no edema? OB - PN: Obj Data Labs Labs: Laboratory Results - last 24 hr 06/23/23 06:55 Hgb 10.6 L OB - PN: A/P Delivery Assessment and Plan (1) care and examination immediately after delivery: Status: Acute (2) Obesity complicating : Status: Acute (3) Polyhydramnios: Status: Acute (4) History of hemorrhage: Status: Acute (5) Lactating mother: Status: Acute Plan day: 1 Plan: routine care Comments: G 2 P 2 status post uncomplicated NVD??? 1.? Continue route PP cares? 2.? .? May see if desired? 3.? Anticipate discharge home tomorrow?
[2023-06-23 11:45] VITALS: BP 104/71; PULSE 81; RESP 20; TEMP 36.6; O2SAT 96
[2023-06-23 16:30] VITALS: BP 112/77; PULSE 76; RESP 18; TEMP 36.7; O2SAT 97
[2023-06-24 00:10] VITALS: BP 113/74; PULSE 76; RESP 18; TEMP 36.5; O2SAT 97
[2023-06-24] MEDS: IBUPROFEN 600 MG TABLET PO ×2 (00:11→11:05)
[2023-06-24 08:10] VITALS: BP 125/82; PULSE 55; RESP 16; TEMP 36.4; O2SAT 97
--- NOTE | 2023-06-24 09:06 | P.DS_ITS ---
DS: Providers Provider Date Seen: 06/24/23 Date of admission: 06/21/23 17:02 Primary care physician: Not a Local Provider Admitting Clinician: Concepcion Duncan MD Attending Physician on discharge: Patrick Zazueta MD Date of Discharge: 06/24/23 DS: Diagnosis Discharge Diagnosis (1) (spontaneous vaginal delivery): Status: Acute (2) Lactating mother: Status: Acute Exam Narrative: Exam Narrative: VITAL SIGNS: As noted above. GENERAL APPEARANCE: Alert, cooperative female in no acute distress. MOOD & AFFECT: Normal. .ABDOMEN: Soft, non-distended and appro priately tender. Well contracted uterus. : Normal lochia. EXTREMITIES: Bilateral trace edema.. Well perfused. Nontender. Const: Vital Signs, click to edit/add: Vital Signs - 24 hr 06/23/23 11:45 06/23/23 16:30 06/24/23 00:10 Temperature 97.9 F 98.1 F 97.7 F Pulse Rate [Blood Pressure Cuff] 81 76 76 Respiratory Rate 20 18 18 Blood Pressure [Ri ght Arm] 104/71 112/77 113/74 Pulse Oximetry 96 97 97 Oxygen Delivery Me thod Room Air Room Air Room Air 06/24/23 08:10 Temperature 97.5 F L Pulse Rate [Blood Pressure Cuff] 55 L Respiratory Rate 16 Blood Pressure [Ri ght Arm] 125/82 Pulse Oximetry 97 Oxygen Delivery Me thod Room Air OB - DS: Summary Hospital Course Hospital Course: The patient is a 27 year old G 2 P 2002 at 390/7 weeks gestation that was admitted to the Center on 06/21/23 for induction of labor due to suspected macrosomia. She had an uncomplicated vaginal delivery. She delivered a viable male . She is breast feeding. the patient has done well. Peripartum Data delivery method: Vaginal Laceration description: None Episiotomy description: None complications: none [place] Infant Gender: Male Discharge Plan: Home Status at Discharge Functional status at discharge: independent ambulation Overall status at discharge: patient is progressing back to baseline Time Spent with Patient Time attestation: Total time spent providing and/or coordinating discharge services: Time spent: Less than 30 minutes Discharge Plan Discharge Disposition: Home, Self-Care Date of Admission: 06/21/23 17:02 Attending Provider on Discharge: Tomasa Zazueta Primary Care Provider: Provider,Not a Local Condition: Stable Anticipated Discharge Date/Time: 06/24/23 09:08 Discharge Medications: New acetaminophen 500 mg Tablet 1,000 mg PO Q6H PRNQty: 30 0RF ibuprofen 600 mg Tablet 600 mg PO Q6H PRNQty: 30 0RF Continued prenat.vits,melvin,bnz-geya-juhcu Tablet 1 tab PO QDAY Discharge Orders: Discharge Order (Routine); Ordered 06/24/23 Ordered By: Tomasa Zazueta Patient Education: OB Vaginal/Breast Feeding Activity Level: Activity as Tolerated Activity Detail: Nothing vaginally for 6 weeks. Discharge Diet: Regular Follow Up Appointments: Provider,Not a Local [Primary Care Provider] - Forms: [facility] Info Instructions
[2023-06-24] MEDS: DOCUSATE SODIUM 100 MG CAPSULE PO (10:44)
== END 2023-06-24 11:20 | disposition home or self-care (01) | DRG 807 ==
PROVIDERS: Admitting Provider Obstetrics & Gynecology; Visit Provider Obstetrics & Gynecology
DX: O99.214 Obesity complicating childbirth (principal); Z37.0 Single live birth; Z3A.39 39 weeks gestation of pregnancy; O40.3XX0 Polyhydramnios, third trimester, not applicable or unspecified; Z87.59 Personal history of other complications of pregnancy, childbirth and the puerperium; O36.63X0 Maternal care for excessive fetal growth, third trimester, not applicable or unspecified
CPT/HCPCS: 01967; 36415; 59200; 85018; 85025; 86850; 86900; 86901; A9270; C1726; J2371; J2795; J3010; J7120

== ENCOUNTER 2023-07-01 09:52 | Outpatient (CLI) | payer OTHER, SELFPAY ==
--- OUTSIDE RECORDS SUMMARY | 2023-07-01 23:54 | XMS_ITS | Patient Health Record ---
Author Name Unknown Organization [facility] Address [address] [place], [place] [id number] Care Team Providers Care Towel Stretcher Name Role Phone None, No PCP Primary Care Provider Jonny Hernandez [phone] ALLERGIES No Known Allergies REASON FOR REFERRAL [...] Missed menses (N92.6) Active confirmed Missed period ([id number]) PLAN OF TREATMENT No Information Insurance Providers Payer Name Payer Address Payer Phone Subscriber Number Group Number Insured Name Patient Relationship to Insured Coverage Start Date Coverage End Date [facility] [address] [facility] [place] [id number] Beatriz Casillas Self - patient is the insured MEDICAL (GENERAL) HISTORY Medical History History ICD Code bladder infections migraines depression\anxiety Surgical History Surgery Date(Month/Year) T&A 2001
== END 2023-07-01 09:53 | disposition home or self-care (01) ==
LOC: NFLDREF 23:52
PROVIDERS: Visit Provider Obstetrics & Gynecology
DX: R39.15 Urgency of urination (principal)
CPT/HCPCS: 87086